=== PATIENT | male | born 1965 ===

== ENCOUNTER 2020-10-14 06:14 | Day surgery (SDC) | payer BC, OTHER ==
[2020-10-08 17:01] VITALS: BMI 28.1
[2020-10-14] MEDS ORDERED: LIDOCAINE HCL 2% (20ML MULTI-DOSE VIAL) ONE (07:18)
[2020-10-14] MEDS ORDERED: BUPIVACAINE HCL/PF 0.25% (2.5MG/ML) 10 ML VIAL ONE (07:18)
[2020-10-14] MEDS ORDERED: MIDAZOLAM HCL 2 MG/2 ML SINGLE DOSE VIAL ONE (07:27)
[2020-10-14] MEDS ORDERED: PROPOFOL 20 ML ONE ×2 (07:27)
[2020-10-14] MEDS ORDERED: LIDOCAINE HCL 1%, 10 MG/ML (20ML VIAL) ONE (07:44)
[2020-10-14] MEDS ORDERED: ceFAZolin SODIUM 1 GM VIAL ONE (07:55)
[2020-10-14 08:45] VITALS: TEMP 98.9
[2020-10-14 09:02] VITALS: BP 121/72; PULSE 71
== END 2020-10-14 09:04 | disposition home or self-care (01) ==
LOC: FASU 06:14
PROVIDERS: ATTEND Orthopaedic Surgery
PROC: 0LN80ZZ Release Left Hand Tendon, Open Approach (ICD-10-PCS; principal; 2020-10-14 08:06)
DX: M65.332 Trigger finger, left middle finger (principal)
CPT/HCPCS: 82962; 88304-TC